=== PATIENT | female | born 1980 | race African-American/Black ===

== ENCOUNTER 2023-06-05 14:51 | Emergency (ER) | payer SELFPAY ==
--- NOTE | 2023-06-05 15:00 | ED_ITS ---
HPI - URI/Sore Throat General Chief Complaint: Upper Respiratory Symptoms Stated Complaint: Cough Sore Throat Time Seen by Provider: 06/05/23 15:31 Source: patient, RN notes reviewed and old records reviewed Mode of arrival: ambulatory History of Present Illness HPI Narrative: 43-year-old female with no significant past medical history presenting to the ED complaining of sore throat, hoarseness, loss of voice x 2 weeks. Reports mild dry cough. Denies known fever, ear pain, difficulty or inability to swallow, SOB/CP, sick contacts MD elicited complaint: sore throat Related Data Previous Rx's Medication Instructions Recorded amoxicillin 875 mg-potassium 1 tab PO BID 7 days #14 tabs 06/05/23 clavulanate 125 mg tablet Allergies Allergy/AdvReac Type Severity Reaction Status Date / Time No Known Allergies Allergy Verified 06/05/23 15:11 Review of Systems Review of Systems: Constitutional: No Fever, No Chills ENT/Mouth: No Ear Pain, No Nasal Congestion, No Sinus Pain, + Hoarseness, + sore throat, No Rhinorrhea, No Swallowing Difficulty Cardiovascular: No Chest Pain, No SOB Respiratory: No Cough, No Sputum Gastrointestinal: No Nausea, No Vomiting, No Abdominal pain Musculoskeletal: No joint pain, No Myalgias Skin: No Skin Lesions, No rash Neuro: No Weakness Yes all other systems are reviewed and are negative Constitutional: Constitutional: Reports as per [facility] Past Medical History Attestation statement: The following information was validated with the patient. Source: old records reviewed Social History Social History Advance Directives: No Advance Directives Information Provided: No Physical Exam Vital Signs: Vital Signs: Last Vital Signs Temp 98.1 F 06/05/23 15:13 Pulse 83 06/05/23 16:35 Resp 18 06/05/23 16:35 BP 170/100 H 06/05/23 16:35 Pulse Ox 99 06/05/23 16:35 O2 Del Method Room Air 06/05/23 16:35 BMI result Body Mass Index 33.5 Const: General: cooperative, healthy appearing and no acute distress Orientation/consciousness: patient oriented x3 Limitations: no limitations HEENT: Head: Yes normal to inspection and Yes atraumatic Ears: hearing grossly normal bilaterally, external ears normal, TM's normal bilaterally and mastoids normal General nose exam: Normal external nose present Face and sinus: Yes normal facial exam Mouth: no drooling and no muffled voice Throat: Yes uvula midline, Yes abnormal tonsil (+ bilateral tonsillar swelling with erythema. No exudates), No peritonsillar mass, Yes posterior oropharynx abnormal, No uvula laterally displaced and No uvular edema Eyes: General: appearance normal, both eyes and all related structures EOM: EOMs intact bilaterally Neck: Neck: Yes normal visual inspection, Yes no meningeal signs, Yes supple, No anterior neck swelling and No torticollis Resp: Effort & Inspection: normal respiratory effort, no respiratory distress and no stridor Auscultation: clear to auscultation bilaterally Cardio: Rate: regular rate Heart sounds: S1 normal heart sound present and S2 normal heart sound present GI: Inspection: Yes normal to inspection Palpation (GI): Soft to palpation, nontender, no guarding and not rigid Skin: Rashes: no rashes Wounds: no wounds Neuro: General: patient oriented x3, tone normal and no meningeal signs Cranial nerves: Yes CN's II-XII intact bilaterally Gait exam (Neuro): Normal gait present Extrem: General: Yes normal to inspection Course Course Course Narrative: This is an RME: Additional HPI, ROS, PE not included below will be deferred to primary provider. Patient is a 43-year-old female who presents to the emergency department for evaluation of cough, sore throat, shortness of breath, hoarseness, onset 2 weeks ago after flying from [place]. Tonsillar hypertrophy L>R, uvulitis. Noted to be hypertensive, states hse was supposed to start medications for this but never did. -COVID/flu and rapid strep negative Results discussed with patient including worrisome signs and symptoms and strict return precautions, and when to return to the emergency department. They verbalized understanding and feel safe for discharge at this time. Medications Administered Discontinued Medications Generic Name Dose Route Start Last Admin Trade Name Freq PRN Reason Stop Dose Admin Amoxicillin/Clavulanate Potassium 875 mg 06/05/23 16:06 06/05/23 16:25 Amoxicillin/Potassium Clav 875 Mg Tablet PO 06/05/23 16:07 875 mg ONCE ONE Administration Dexamethasone Sodium Phosphate 10 mg 06/05/23 16:05 06/05/23 16:25 Dexamethasone Sod Phosphate 10 Mg/Ml Vial IVPUSH 06/05/23 16:06 10 mg ONCE ONE Administration Medical Decision Making Medical Decision Making [facility] Narrative: 43-year-old female with no significant past medical history presenting to the ED complaining of sore throat, hoarseness, loss of voice x 2 weeks. On exam hypertensive, NAD, nontoxic appearing, appreciable loss of voice/laryngitis, bilateral tonsillar swelling with erythema, no exudates. Uvula midline, talking in complete sentences, no stridor. Concern for laryngitis vs strep pharyngitis vs viral pharyngitis. No evidence of TOBACCO PRIZER/retropharyngeal abscess or anaphylaxis Plan: P.o. Decadron and Augmentin, PCP follow-up Please refer to course for remaining clinical decision making, interpretation of labs/imaging results, and discussions with consultants and/or family members. Differential Diagnosis Differential Diagnoses: The differential diagnosis associated with the presentation includes As above Lab Data [facility] Lab Attestation statement: I reviewed the patient's lab results. Labs: Lab Results 06/05/23 Range/Units 15:22 COVID-19 (CHELLE) Negative (Negative) COVID-19 Clin Com See Note Influenza Type A (ANILA) Negative (Negative) Influenza Type B (ANILA) Negative (Negative) Influenza A & B Note See Note S. pyogenes GrpA ANILA Negative (Negative) External Record Review External record reviewed: Inpatient record, Office record, Outpatient record, Prior outpatient labs, Prior outpatient radiology, Primary care record and Outside ED record Tests considered The following testing was considered but not selected: As above Prescription Management I considered prescription management with: Pain Medication and Antibiotic Discharge Plan Discharge Clinical Impression: Pharyngitis, Laryngitis, HTN (hypertension) Patient Disposition: Home, Self-Care Instructions: Pharyngitis (ED), Laryngitis (ED) Additional Instructions: You tested negative for strep, COVID and flu Augmentin as an antibiotic please take as prescribed You were given a dose of and a steroid which will help with inflammation In addition take Tylenol and Motrin Gargle with warm salt water and continue to use lozenges If symptoms persist or worsen, pain comes unbearable, you are unable to eat or drink have shortness of breath or wheezing return to the ED immediately Follow-up with her doctor Prescriptions: New amoxicillin-pot clavulanate 875-125 mg tablet 1 tab PO BID 7 Days Qty: 14 0RF Referrals: Physician,None [Primary Care Provider] - Interventions: ED Discharge Assessment Last Done: 06/05/23 16:42 Discharge Date/Time: 06/05/23 16:43
[2023-06-05 15:13] VITALS: BP 178/112; PULSE 88; RESP 16; TEMP 36.7; O2SAT 96; BMI 33.5
[2023-06-05 15:45] LABS: IDNOW Serial# 08D9AD1C; Strep A Nucleic Acid Negative (Negative)
[2023-06-05 15:49] LABS: IDNOW Serial# 152EDE1D; Influenza A Negative (Negative); Influenza B2 Negative (Negative)
[2023-06-05 15:50] LABS: COVID-19 Test Negative (Negative); IDNOW Serial# 9DB6401D
[2023-06-05] MEDS: Amoxicillin/Potassium Clav 875 MG TABLET PO (16:25)
[2023-06-05] MEDS: dexAMETHasone sod phosphate 10 MG/ML VIAL IVPUSH (16:25)
[2023-06-05 16:35] VITALS: BP 170/100; PULSE 83; RESP 18; O2SAT 99
== END 2023-06-05 16:43 | disposition home or self-care (01) ==
PROVIDERS: Nurse Practitioner Family; Emergency Provider Emergency Medicine Emergency Medical Services
DX: J04.0 Acute laryngitis (principal); J02.9 Acute pharyngitis, unspecified; Z11.52 Encounter for screening for COVID-19; I10 Essential (primary) hypertension
CPT/HCPCS: 87502; 87635; 87651; 99283; J1100